=== PATIENT | male | born 1935 | race Caucasian/White ===

== ENCOUNTER 2016-03-23 10:40 | Day surgery (SDC) | payer MEDICARE ==
[~2016-03-23 10:40] MED LIST: PROPOFOL INJ 200 MG/20 ML VIAL IV ONE
[2016-03-23 12:53] VITALS: BP 132/71
--- NOTE | 2016-03-23 13:13 | Operative Report ---
Operative Report DATE OF SURGERY: 03/23/16 Operative Report: The risks, benefits and alternatives of the procedure including risks of bleeding, perforation requiring surgery are explained to the patient in detail and informed consent is obtained. Patient is taken back to the endoscopy suite. Timeout is called. Propofol medication is administered. A rectal examination was done which did not reveal any masses, tears or fissures. An Olympus videoscope was inserted into the patient's rectum. Keeping the lumen in site at all times the scope was then gradually advanced all the way to the cecum. The cecum as identified by the usual anatomical landmarks of the ileocecal valve as well as the appendiceal office. Prep is reasonably good. The scope is then sequentially pulled back via the rest segments of the colon including the ascending colon, hepatic flexure, transverse colon, splenic flexure, descending colon, rectosigmoid colon. Retroflexion maneuvers performed. Following this patient's stretcher was turned around and EGD performed.The risks benefits and alternatives of the procedure explained to the patient in detail and informed consent is obtained that GIF Olympus video scope was inserted into the patient's mouth and hypopharynx the esophagus is identified intubated and insufflated the scope was then advanced through the esophagus stomach and duodenum retroflexion maneuver is done the esophagus stomach and first and second portions of the duodenum examined PREOPERATIVE DIAGNOSIS: Hematemesis ,nausea, blood in stool, change of bowel habits POSTOPERATIVE DIAGNOSIS: very severe diverticulosis. Internal hemorrhoids. No evidence of ischemia. Colitis seems to have healed. Gastritis. Hiatal hernia. Normal esophagus. Normal first and second portions of the duodenum OPERATION: Colonoscopy with biopsy. EGD with biopsy SURGEON: COLE COLON ANESTHESIA: LMAC TISSUE REMOVED OR ALTERED: Gastric specimen obtained. Colon biopsy rule out collagenous colitis COMPLICATIONS: None. ESTIMATED BLOOD LOSS: none. INTRAOPERATIVE FINDINGS: significant left and right sided diverticulosis without any evidence of diverticulitis. No AVMs noted. No ischemic colitis noted PROCEDURE: Patient tolerated the procedure well. No immediate postprocedure complications are noted. He is discharged in good condition. Date of discharge 03/23/2016. Discharge diet: Regular. Discharge activity: Regular. We'll await on biopsies. Patient is instructed to go the emergency room or call the office should there be any further problems or questions. Patient does have a 2-3 week follow-up to discuss findings
== END 2016-03-23 13:10 | disposition home or self-care (01) ==
LOC: END 10:40
PROVIDERS: ATTEND Internal Medicine Gastroenterology
PROC: 0DB68ZX Excision of Stomach, Via Natural or Artificial Opening Endoscopic, Diagnostic (ICD-10-PCS; principal; 2016-03-23 15:00)
PROC: 0DJD8ZZ Inspection of Lower Intestinal Tract, Via Natural or Artificial Opening Endoscopic (ICD-10-PCS; 2016-03-23 15:00)
DX: K57.30 Diverticulosis of large intestine without perforation or abscess without bleeding (principal); K64.8 Other hemorrhoids; K29.50 Unspecified chronic gastritis without bleeding; K44.9 Diaphragmatic hernia without obstruction or gangrene; K92.1 Melena; K92.0 Hematemesis; Z79.51 Long term (current) use of inhaled steroids; Z79.899 Other long term (current) drug therapy; Z79.01 Long term (current) use of anticoagulants
CPT/HCPCS: 43239; 45378; 88342 ×2; 88305 ×2; J2704; 740

== ENCOUNTER → 2016-04-30 | Outpatient (CLI) | payer MEDICARE ==
[2016-05-01 09:06] LABS: ANION GAP 5 (5-19); BLOOD UREA NITROGEN 21 mg/dL (7-20); CALCIUM 9.1 mg/dL (8.4-10.2); CARBON DIOXIDE 33 mmol/L (22-30); CHLORIDE 102 mmol/L (98-107); GLUCOSE 91 mg/dL (75-110); POTASSIUM 4.6 mmol/L (3.6-5.0); SODIUM 139.7 mmol/L (137-145)
[2016-05-01 09:30] LABS: THYROID STIMULATING HORMONE 7.39 uIU/mL (0.47-4.68)
[2016-05-03 06:33] LABS: TESTOSTERONE FREE (DIRECT) 3.3 pg/mL (6.6-18.1)
== END ==
LOC: OD 13:12
PROVIDERS: ATTEND Internal Medicine Endocrinology, Diabetes & Metabolism
DX: E29.1 Testicular hypofunction (principal)
CPT/HCPCS: 36415; 80048; 84402; 84403; 84439; 84443

== ENCOUNTER → 2016-06-24 | Outpatient (CLI) | payer MEDICARE | LOC: OD 16:40 | PROVIDERS: ATTEND Internal Medicine | DX: E03.9 Hypothyroidism, unspecified (principal) | CPT/HCPCS: 36415; 84443 ==

== ENCOUNTER → 2018-08-10 | Outpatient (CLI) | payer MEDICARE ==
[2018-08-10 09:58] LABS: ABSOLUTE BASOPHILS # (AUTO) 0.1 10^3/uL (0.0-0.2); ABSOLUTE EOSINOPHILS # (AUTO) 0.3 10^3/uL (0.0-0.6); ABSOLUTE LYMPHOCYTES (AUTO) 2.4 10^3/uL (0.5-4.7); ABSOLUTE MONOCYTES (AUTO) 0.8 10^3/uL (0.1-1.4); ABSOLUTE NEUT (AUTO) 3.3 10^3/uL (1.7-8.2); BASOPHILS % (AUTO) 0.8 % (0-2); EOSINOPHILS % (AUTO) 3.8 % (0-6); HEMATOCRIT 39.3 % (37.9-51.0); HEMOGLOBIN 13.3 g/dL (13.5-17.0); LYMPHOCYTES % (AUTO) 35.3 % (13-45); MEAN CORPUSCULAR HEMOGLOBIN 32.6 pg (27.0-33.4); MEAN CORPUSCULAR HGB CONC 33.9 g/dL (32.0-36.0); MEAN CORPUSCULAR VOLUME 96 fl (80-97); MONOCYTES % (AUTO) 11.8 % (3-13); PLATELET COUNT 293 10^3/uL (150-450); RED BLOOD COUNT 4.08 10^6/uL (4.35-5.55); RED CELL DISTRIBUTION WIDTH 12.9 % (11.5-14.0); SEGMENTED NEUTROPHILS % (AUTO) 48.3 % (42-78); TOTAL CELLS COUNTED % (AUTO) 100 %; WHITE BLOOD COUNT 6.9 10^3/uL (4.0-10.5)
[2018-08-10 10:11] LABS: ALANINE AMINOTRANSFERASE 20 U/L (21-72); ALBUMIN 3.7 g/dL (3.5-5.0); ALKALINE PHOSPHATASE 64 U/L (38-126); ANION GAP 9 (5-19); ASPARTATE AMINO TRANSFERASE 21 U/L (17-59); BILIRUBIN,DIRECT 0.3 mg/dL (0.0-0.4); BILIRUBIN,TOTAL 0.6 mg/dL (0.2-1.3); BLOOD UREA NITROGEN 13 mg/dL (7-20); CALCIUM 9.3 mg/dL (8.4-10.2); CARBON DIOXIDE 33 mmol/L (22-30); CHLORIDE 99 mmol/L (98-107); CHOLESTEROL 110.22 mg/dL (0-200); GLUCOSE 90 mg/dL (75-110); POTASSIUM 4.6 mmol/L (3.6-5.0); SODIUM 140.9 mmol/L (137-145); TOTAL PROTEIN 6.3 g/dL (6.3-8.2); TRIGLYCERIDES 91 mg/dL (<150)
[2018-08-10 10:22] LABS: DIRECT LDL 51 mg/dL (<100)
[2018-08-10 10:25] LABS: FREE T4 (FREE THYROXINE) 1.29 ng/dL (0.78-2.19)
[2018-08-10 10:39] LABS: THYROID STIMULATING HORMONE 2.61 uIU/mL (0.47-4.68)
== END ==
LOC: OD 09:20
PROVIDERS: ATTEND Internal Medicine
DX: E27.1 Primary adrenocortical insufficiency (principal); I10 Essential (primary) hypertension; E78.00 Pure hypercholesterolemia, unspecified; D64.9 Anemia, unspecified; E03.9 Hypothyroidism, unspecified
CPT/HCPCS: 36415; 80053; 80061; 84439; 84443; 85025